=== PATIENT | male | born 1970 | race Caucasian/White ===

== ENCOUNTER 2022-01-08 12:15 | Emergency (ER) | payer SELFPAY ==
[2022-01-08] MEDS ORDERED: Sodium Chloride 0.9% 2.5 ML Syringe FLUSH PRN (12:59)
[2022-01-08] MEDS ORDERED: Sodium Chloride 0.9% 10 ML Syringe FLUSH PRN (12:59)
[2022-01-08 14:04] LABS: CORONAVIRUS COVID-19 NAA NEGATIVE (NEGATIVE); INFLUENZA A NAA NEGATIVE (NEGATIVE); INFLUENZA B NAA NEGATIVE (NEGATIVE)
[2022-01-08] MEDS ORDERED: Famotidine 20 MG Tab PO ONE (14:16)
[2022-01-08] MEDS ORDERED: Pantoprazole 80 MG in Sodium Chloride 0.9% 10 ML IVPUSH ONE (14:17)
[2022-01-08 14:26] LABS: CARBON DIOXIDE,CO2 34.5 mmol/L (21.0-32.0); POTASSIUM,K 4.9 mmol/L (3.5-5.1)
[2022-01-08] MEDS ORDERED: Iopamidol 755 MG/ML 500 ML Multipack Bottle IVPUSH STA (14:59)
== END 2022-01-08 16:59 | disposition home or self-care (01) ==
LOC: MW.ED 12:15
DX: K29.70 Gastritis, unspecified, without bleeding (principal); F17.210 Nicotine dependence, cigarettes, uncomplicated; Z20.822 Contact with and (suspected) exposure to COVID-19; Z88.6 Allergy status to analgesic agent
CPT/HCPCS: 0240U; 36415; 74177; 80053; 81003; 83690; 84484; 85025; 93005; 96374; 99284; A9270; C9113; J3490; Q9967; 93010; 99282